=== PATIENT | female | born 1930 | race Caucasian/White ===

== ENCOUNTER 2016-12-27 01:53 | Emergency (ER) | payer MEDICARE, OTHER ==
[2016-12-27 02:23] LABS: Hematocrit 30.6 % (37.0-47.0); Hemoglobin 9.6 gm/dL (12.5-16.0); Mean Cell Volume 84.1 fl (78-100); Mean Corpuscular Hemoglobin 26.4 pg (27-31); Mean Corpuscular Hgb Conc 31.4 g/dl (32-36); Mean Platelet Volume 9.2 fl (6.0-9.5); Platelet Count 378 K/mm3 (150-450); Red Blood Count 3.64 M/mm3 (4.2-5.4); Red Cell Distribution Width 15.7 % (11.5-14.0); White Blood Count 36.9 K/mm3 (4.0-10.5)
--- NOTE | 2016-12-27 02:23 | ERNOTE ---
Dizziness ER Record Date of Service: 12/27/16 Source: patient, family Exam Limitations: no limitations Immunizations: IMMUNIZATION HX Immunizations Up to Date Yes History of Influenza Vaccine Yes Hx Pneumococcal Vaccination Yes Allergies/Adverse Reactions: Allergies Allergy/AdvReac Type Severity Reaction Status Date / Time No Known Allergies Allergy Unverified 11/12/16 04:30 Home Medications: HOME MEDICATIONS Alendronate Sodium [Fosamax] 70 mg PO MO 12/11/14 [Last Taken Unknown] Lovastatin [Mevacor] 20 mg PO HS 12/11/14 [Last Taken 10/12/16] Ascorbic Acid [Vitamin C] 500 mg PO DAILY #30 12/15/14 [Last Taken Unknown] Cholecalciferol [Vitamin D] 2,000 unit PO DAILY #30 capsule 12/15/14 [Last Taken Unknown] Cyanocobalamin (Vitamin B-12) [Vitamin B-12] 1,000 mcg PO DAILY #30 ml 12/15/14 [Last Taken Unknown] Ropinirole HCl [Requip] 0.25 mg PO HS 04/09/15 [Last Taken 10/12/16] Ranitidine HCl [Zantac] 150 mg PO DAILY 05/14/15 [Last Taken 10/12/16] Budesonide/Formoterol Fumarate [Symbicort 80-4.5 Mcg Inhaler] 2 puff IH BID [Last Taken 10/12/16] Albuterol Sulfate/Ipratropium [Duoneb 2.5-0.5MG/3ML Soln] 3 ml IH QID 09/28/16 [ Last Taken Unknown] Mirtazapine 15 mg PO HS 10/13/16 [Last Taken 10/12/16] Acetaminophen [Tylenol] 650 mg PO QID PRN #30 tablet 10/18/16 [Last Taken Unknown] Aspirin [Aspirin EC] 81 mg PO DAILY #30 tablet 10/18/16 [Last Taken Unknown] Lisinopril [Zestril] 2.5 mg PO HS #.1 tablet 11/19/16 [Last Taken Unknown] Metoprolol Tartrate [Lopressor] 25 tab PO BID #.1 tablet 11/19/16 [Last Taken Unknown] metroNIDAZOLE [Flagyl] 500 mg PO Q8H #21 tablet 12/27/16 [Last Taken Unknown] - History of Present Illness Narrative: 86 year old that has been having frequent episodes of diarrhea for two days that has been foul smelling. Early this morning she went to the toilet and became weak, with a near syncopal episode. Her daughter helped her back to bed where she had difficulty walking due to weakness. There has not been any abdominal pain, fevers, chills, or exposure to sick contacts. Hx of previous episode of C. Diff. Timing and Duration: sudden onset Severity: max: severe Severity: currently: gone Associated Symptoms: Present: none Decreased ability to stand/walk:: Present: weak Usually:: Present: uses a cane/walker Modifying Factors - (Improves): Reports: nothing Modifying Factors - (Worsens): Reports: standing position Review of Systems - Review of Systems Constitutional: Present: no symptoms reported EYE: Present: no symptoms reported ENT: Present: no symptoms reported Respiratory: Present: no symptoms reported Cardiology: Present: no symptoms reported Gastrointestinal/Abdominal: Present: See HPI Genitourinary: Present: no symptoms reported Musculoskeletal: Present: no symptoms reported Skin: Present: no symptoms reported Neurological: Present: no symptoms reported Endocrine: Present: no symptoms reported Hematologic/Lymphatic: Present: no symptoms reported Psych: Present: no symptoms reported - Patient's Past Medical History Patient History - Medical: Anemia, GERD, Osteoarthritis, Osteoporosis, Other Patient History - Cardiac/Respiratory: No pertinent hx Patient History - Cancer: No Hx of Cancer Patient History - Surgical Procedures: Cholecystectomy, Colonoscopy Patient History - Other: None - Family History Mother Family History - Medical: Family History - Cardiac/Respiratory: CVA/Stroke Father Family History - Medical: Family History - Cardiac/Respiratory: Myocardial Infarction - Social History Living Situations: home Smoking Status: Never smoker Have you smoked in the past 12 months: No Do you dip or chew tobacco: No Alcohol Use: none Drug Use: none - Immunizations Immunizations Up to Date: Yes Hx Pneumococcal Vaccination: Yes History of Influenza Vaccine: Yes Physical Exam - Physical Exam General Appearance: Present: no apparent distress Eye Exam: Normal inspection: bilateral Ears, Nose, Throat: Present: normal ENT inspection, dry mucous membranes - moderately, other Neck: Present: normal inspection Respiratory: Present: no respiratory distress Cardiovascular/Chest: Present: regular rate, rhythm Gastrointestinal/Abdominal: Present: nontender, nondistended, soft, no organomegaly Back Exam: Present: normal inspection Extremity Exam: Present: normal inspection Neurological Exam: Present: alert, oriented, normal mood/affect, 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 - Vital Signs Patient's Vital Signs:: I have reviewed the patient's vital signs. Vital Signs: Vital Signs 12/27/16 12/27/16 01:54 01:59 Temperature 36.9 C 37.3 C Pulse Rate 71 Respiratory 16 Rate Blood Pressure 113/54 131/49 O2 Sat by Pulse 94 Oximetry - EKG EKG: NSR EKG read: Interp. by me EKG Comments: rate 70, normal axis. - Progress/Reassessment Chief Complaint: Dizziness Progress:: Improved Progress Note-Subjective: 12/27/16 04:55 Clinically appears to be mentating better and looks brighter after fluid administration. The WBC count was significantly elevated which may be indicative of a leukemia or lymphoma. C diff was found to be positive. 12/27/16 07:37 The patient is feeling much better and was able to ambulate with her walker. Departure Clinical Impression: C. difficile diarrhea, Leukocytosis (leucocytosis) - Departure Disposition: Home self-care Condition: Fair Instructions: Clostridium Difficile FAQs - BRITO, Leukocytosis Print Language: Icelandic Additional Instructions: Follow up with your physician this week. If you feel worse return to the ED. Prescriptions: metroNIDAZOLE [Flagyl] 500 mg PO Q8H #21 tablet
[2016-12-27 02:31] LABS: Anion Gap 15.1 mmol/L (6.8-13.8); BUN/Creatinine Ratio 15.2 (9.0-21.6); Carbon Dioxide 22.1 mmol/L (24-32.6); Estimated Creat Clear 27.4; Potassium 3.2 mmol/L (3.4-4.6)
[2016-12-27 02:34] LABS: Total Cells Counted 100
[2016-12-27 02:42] LABS: Band 4 % (0-2.0); Hypochromia 1+; Lymphocyte 1 % (20-51); Monocyte 2 % (0-9); Neutrophil 93 % (42-75); Neutrophil # 34.3 K/mm3 (1.3-6.0); Platelet Estimate Normal (NORMAL)
[2016-12-27] MEDS ORDERED: NORMAL SALINE 1,000 ML IV PRN (02:48)
[2016-12-27 03:32] LABS: Urine Bilirubin Negative (NEGATIVE); Urine Blood Negative /ul (NEGATIVE); Urine Ketone Negative (NEGATIVE); Urine Nitrite Negative (NEGATIVE); Urine Protein Negative (NEGATIVE); Urine Specific Gravity 1.025 SP.GR. (1.005-1.010); Urine Urobilinogen Normal (NORMAL)
[2016-12-27 03:53] LABS: Urine Appearance Clear; Urine Bacteria TRACE; Urine Color Yellow; Urine RBC None Seen /hpf (0-5); Urine WBC None Seen /hpf (0-5)
[2016-12-27 03:53] LABS: Hematocrit 27.8 % (37.0-47.0); Hemoglobin 8.9 gm/dL (12.5-16.0); Mean Cell Volume 83.2 fl (78-100); Mean Corpuscular Hemoglobin 26.6 pg (27-31); Mean Platelet Volume 9.1 fl (6.0-9.5); Platelet Count 341 K/mm3 (150-450); Red Blood Count 3.34 M/mm3 (4.2-5.4); Red Cell Distribution Width 15.9 % (11.5-14.0); White Blood Count 36.3 K/mm3 (4.0-10.5)
[2016-12-27 03:55] LABS: Urine Amorphous Sediment Few - 1+ (NONE-FEW); Urine Renal Epithelial Cell Few - 1+ /hpf
[2016-12-27 04:01] LABS: Total Cells Counted 100
[2016-12-27] MEDS ORDERED: POTASSIUM CHLORIDE 20 MEQ TABLET.SA PO ONE (04:11)
[2016-12-27 04:30] LABS: Band 7 % (0-2.0); Monocyte 5 % (0-9); Neutrophil 88 % (42-75); Neutrophil # 31.9 K/mm3 (1.3-6.0); Platelet Estimate Normal (NORMAL)
[2016-12-27 04:31] LABS: Hypochromia 1+
[2016-12-27 04:32] LABS: Lymphocyte 0 % (20-51)
[2016-12-27] MEDS ORDERED: POTASSIUM CHLORIDE 20 MEQ TABLET.SA ONE (04:33)
[2016-12-27] MEDS ORDERED: metroNIDAZOLE/SODIUM CHLORIDE 500 MG/100 ML BAG IV SCH (04:45)
[2016-12-27 07:54] VITALS: BP 147/53
== END 2016-12-27 07:55 | disposition home or self-care (01) ==
LOC: ER 01:53
DX: A04.7 Enterocolitis due to Clostridium difficile (principal); D72.829 Elevated white blood cell count, unspecified

== ENCOUNTER 2016-12-28 11:09 | Emergency (ER) | payer MEDICARE, OTHER ==
--- NOTE | 2016-12-28 11:45 | ERNOTE ---
Medical Problem HPI - Narrative Date of Service: 12/28/16 - General Chief Complaint: General Assessment Time Seen by Provider: 12/28/16 11:13 Source: patient, family - history also given by daughters Exam Limitations: no limitations - Immun/Allergies/Home Medications Immunizations: IMMUNIZATION HX Immunizations Up to Date Yes History of Influenza Vaccine Yes Hx Pneumococcal Vaccination Yes Allergies/Adverse Reactions: Allergies No Known Allergies Allergy (Verified 12/28/16 11:20) Home Medications: HOME MEDICATIONS Alendronate Sodium [Fosamax] 70 mg PO MO 12/11/14 [Last Taken Unknown] Lovastatin [Mevacor] 20 mg PO HS 12/11/14 [Last Taken 10/12/16] Ascorbic Acid [Vitamin C] 500 mg PO DAILY #30 12/15/14 [Last Taken Unknown] Cholecalciferol [Vitamin D] 2,000 unit PO DAILY #30 capsule 12/15/14 [Last Taken Unknown] Cyanocobalamin (Vitamin B-12) [Vitamin B-12] 1,000 mcg PO DAILY #30 ml 12/15/14 [Last Taken Unknown] Ropinirole HCl [Requip] 0.25 mg PO HS 04/09/15 [Last Taken 10/12/16] Ranitidine HCl [Zantac] 150 mg PO DAILY 05/14/15 [Last Taken 10/12/16] Budesonide/Formoterol Fumarate [Symbicort 80-4.5 Mcg Inhaler] 2 puff IH BID [Last Taken 10/12/16] Albuterol Sulfate/Ipratropium [Duoneb 2.5-0.5MG/3ML Soln] 3 ml IH QID 09/28/16 [ Last Taken Unknown] Mirtazapine 15 mg PO HS 10/13/16 [Last Taken 10/12/16] Acetaminophen [Tylenol] 650 mg PO QID PRN #30 tablet 10/18/16 [Last Taken Unknown] Aspirin [Aspirin EC] 81 mg PO DAILY #30 tablet 10/18/16 [Last Taken Unknown] Lisinopril [Zestril] 2.5 mg PO HS #.1 tablet 11/19/16 [Last Taken Unknown] Metoprolol Tartrate [Lopressor] 25 tab PO BID #.1 tablet 11/19/16 [Last Taken Unknown] metroNIDAZOLE [Flagyl] 500 mg PO Q8H #21 tablet 12/27/16 [Last Taken Unknown] - History of Present History Narrative: Patient was recently diagnosed with C. difficile diarrhea has been having weakness but more so this morning roughly around 931 of the daughters thought she was weak and possibly having stroke on the left side. Daughter state that she was drooling on the left side thought she had a left facial droop and was having a hard time with moving her left side. As the patient's been in the ER I do not see any facial droop her power appears to be equal or maybe slightly diminished on the left as compared to the right but there is no major drift. She is alert and oriented [address] and [address]. Denies any chest pain abdominal pain she still has diarrhea she's been having some dizziness since the diarrhea has been going on. In feeling as stated generally weak. Date (Duration): 12/28/16 Timing: unsure Review of Systems - Review of Systems Constitutional: Present: weakness, fatigue, weight loss, decreased activity level. Absent: fever, chills Cardiology: Absent: chest pain, palpitations, syncope, edema Gastrointestinal/Abdominal: Present: diarrhea, eating less, drinking less. Absent: nausea, abdominal pain Neurological: Present: dizziness/light-headedness, weakness All Other Systems: All systems neg except as marked - Patient's Past Medical History Patient History - Medical: Anemia, GERD, Osteoarthritis, Osteoporosis, Other Patient History - Cardiac/Respiratory: No pertinent hx Patient History - Cancer: No Hx of Cancer Patient History - Surgical Procedures: Cholecystectomy, Colonoscopy Patient History - Other: None - Family History Mother Family History - Medical: Family History - Cardiac/Respiratory: CVA/Stroke Father Family History - Medical: Family History - Cardiac/Respiratory: Myocardial Infarction - Social History Living Situations: home Alcohol Use: none Drug Use: none - Immunizations Immunizations Up to Date: Yes Hx Pneumococcal Vaccination: Yes History of Influenza Vaccine: Yes Physical Exam - Physical Exam General Appearance: Present: wd/wn, alert, no apparent distress Eye Exam: PERRL: bilateral, EOMI: bilateral Ears, Nose, Throat: Present: normal ENT inspection, dry mucous membranes Neck: Present: normal inspection, nontender, supple, full range of motion Respiratory: Present: no respiratory distress, normal breath sounds, no accessory muscle use, chest nontender, lungs clear Cardiovascular/Chest: Present: regular rate, rhythm, no murmur, normal peripheral pulses Gastrointestinal/Abdominal: Present: normal bowel sounds, nontender, nondistended, soft, no organomegaly Back Exam: Present: normal inspection Extremity Exam: Present: non-tender Neurological Exam: Present: alert, oriented, normal mood/affect, no motor/ sensory deficits, 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 Left leg for 5 right leg 5 out of 5 no dressing. Absent: facial droop ED Progress - Results and Orders Patient's Lab Results:: I have reviewed the patient's lab results. - Vital Signs Patient's Vital Signs:: I have reviewed the patient's vital signs. Vital Signs: Vital Signs 12/28/16 11:13 Temperature 36.1 C L Pulse Rate 68 Respiratory 12 Rate Blood Pressure 106/56 O2 Sat by Pulse 97 Oximetry - EKG EKG: NSR, nonspecific ST T wave changes EKG read: Reviewed by me EKG Comments: Heart rate 64 sinus rhythm with an AV block and ST-T wave changes - X-Ray X-Ray #1 X-Ray: abdomen Interpretation: Reviewed by me X-ray Comments: Abdominal series shows no evidence of bowel obstruction. Scattered diffuse colonic air-fluid levels suggestive of colitis - CT/Ultrasound CT/Ultrasound Narrative: CAT scan of the head shows possible ischemic changes at the level of the right parietal occipital lobe versus artifact. Cortical atrophy. Chronic microvascular ischemic white matter disease. Otherwise no acute intracranial hemorrhage or mass effect. - Progress/Reassessment Chief Complaint: General Assessment Progress:: Improved - Transfer of Care Expected Disposition: Transfer Departure - Departure Clinical Impression: Elevated troponin, Colitis due to Clostridium difficile, C. difficile diarrhea TIA (transient ischemic attack) Qualifiers: Transient cerebral ischemia type: unspecified Qualified Code(s): G45.9 - Transient cerebral ischemic attack, unspecified Disposition: [facility] Condition: Stable Additional Instructions: [facility] being transferred to [facility], the case with Dr. James, neurology, is patient at this time is not a candidate for any TPA, patient can be transferred to [facility]. She is stable , accepting physician was Dr. Raymundo ALVAREZ And also has an elevated troponin as well will need a cardiology consult. Recent supplement her potassium continued IV fluids. Does not have any chest pain at this time. Referrals: Oliver Herzog MD [Primary Care Provider] -
[2016-12-28 12:17] LABS: Hematocrit 28.2 % (37.0-47.0); Hemoglobin 8.8 gm/dL (12.5-16.0); Mean Cell Volume 83.9 fl (78-100); Mean Corpuscular Hemoglobin 26.2 pg (27-31); Mean Corpuscular Hgb Conc 31.2 g/dl (32-36); Mean Platelet Volume 8.8 fl (6.0-9.5); Platelet Count 311 K/mm3 (150-450); Red Blood Count 3.36 M/mm3 (4.2-5.4); Red Cell Distribution Width 15.9 % (11.5-14.0); White Blood Count 23.5 K/mm3 (4.0-10.5)
[2016-12-28 12:24] LABS: Prothrombin Time (Patient) 12.2 Seconds (9.4-11.4)
[2016-12-28 12:28] LABS: Total Cells Counted 100
[2016-12-28 12:29] LABS: INR 1.17 INR (0.90-1.10)
[2016-12-28 12:38] LABS: Troponin I 0.121 ng/ml (0.00-0.10)
[2016-12-28 12:41] LABS: BUN/Creatinine Ratio 14.9 (9.0-21.6)
[2016-12-28 12:42] LABS: Albumin * 1.8 gm/dl (3.4-5.0); Anion Gap 12.9 mmol/L (6.8-13.8); Bilirubin, Total 0.3 mg/dL (0.0-1.1); Ca. Corrected For Albumin 9.3 mg/dL (8.4-10.2); Calcium * 7.9 mg/dL (7.9-10.9); Carbon Dioxide 22.2 mmol/L (24-32.6); Potassium 3.1 mmol/L (3.4-4.6); Total Protein 4.6 gm/dL (6.2-8.2)
[2016-12-28 12:43] LABS: Band 10 % (0-2.0); Eosinophil 1 % (0-3); Monocyte 4 % (0-9); Neutrophil 85 % (42-75); Platelet Estimate Normal (NORMAL)
[2016-12-28 12:46] LABS: Hypochromia 1+
[2016-12-28] MEDS: NORMAL SALINE 1,000 ML IV PRN (12:48)
[2016-12-28] MEDS ORDERED: POTASSIUM CHLORIDE 20 MEQ TABLET.SA ONE (13:03)
[2016-12-28] MEDS: POTASSIUM CHLORIDE 100 ML IV ONE (13:37)
[2016-12-28] MEDS: POTASSIUM CHLORIDE 20 MEQ TABLET.SA PO ONE (13:37)
[2016-12-28 13:47] VITALS: BP 123/57
== END 2016-12-28 14:04 | disposition short-term general hospital (02) ==
LOC: ER 11:09
DX: A04.7 Enterocolitis due to Clostridium difficile (principal); R79.89 Other specified abnormal findings of blood chemistry; G45.9 Transient cerebral ischemic attack, unspecified; Z90.49 Acquired absence of other specified parts of digestive tract